=== PATIENT | female | born 1965 | race African-American/Black ===

== ENCOUNTER 2018-11-19 18:53 | Inpatient (IN) | payer MEDICAID ==
[~2018-11-19] VITALS: Ht 167.6 cm; Wt 92.7 kg
[2018-11-19] MEDS ORDERED: METHYLPREDNISOLONE SOD SUCC 125 MG/2 ML VIAL IV STA (21:54)
[2018-11-19] MEDS ORDERED: ALBUTEROL (0.083%) 2.5MG/3ML NEB HHN STA (21:54)
[2018-11-19] MEDS ORDERED: IPRATROPIUM BROMIDE (0.02%) 0.5MG/2.5ML NEB HHN STA (21:54)
[2018-11-19] MEDS ORDERED: ONDANSETRON HCL 4MG/2ML INJ IV STA (21:54)
[2018-11-19 23:09] LABS: BASOPHILS % 0.7 % (0.0-2.0); EOSINOPHILS % 2.6 % (0.0-5.0); HEMOGLOBIN. 13.1 g/dL (12.0-16.0); LYMPHOCYTES % 57.9 % (20.0-50.0); MEAN CORPUSCULAR HEMOGLOBIN 32.2 pg (28.0-32.0); MEAN CORPUSCULAR VOLUME 95.5 fL (81.0-99.0); MEAN PLATELET VOLUME 8.4 fl (7.4-10.4); MONOCYTES % 7.4 % (2.0-8.0); NEUTROPHILS % 31.4 % (40.0-76.0); PLATELET 302 x1000/uL (130-400); RED BLOOD CELL COUNT 4.08 mill/uL (4.2-5.4); RED CELL DISTRIBUTION WIDTH 14.4 % (11.6-14.6)
[2018-11-19 23:15] LABS: CHLORIDE 109 mEq/L (98-107)
[2018-11-20 00:03] LABS: BG BASE EXCESS -1.4 mmol/L (-2.0-2.0); BG CARBOXYHEMOGLOBIN 3.9 % (0.5-1.5); BG DEOXYHEMOGLOBIN 8.3 % (0.0-5.0); BG FRACTION INSPIRED OXYGEN 21; BG HCO3 ACT 23.8 mmol/L (22.0-26.0); BG METHEMOGLOBIN 0.3 % (0.0-1.5); BG OXYGEN SATURATION 91.3 % (92.0-98.5); BG OXYHEMOGLOBIN 87.5 % (94.0-97.0); BG PH 7.372 (7.350-7.450); BG PO2 61.1 mmHg (75.0-100.0); BG SAMPLE SITE RIGHT RADIAL; BG TOTAL HEMOGLOBIN 13.5 g/dL (12.0-18.0); BG VENT MODE ROOM AIR
[2018-11-20] MEDS ORDERED: ALBUTEROL (0.5%) 2.5MG/0.5ML NEB HHN ONE (01:00)
[2018-11-20] MEDS ORDERED: KETOROLAC 30MG/ML VIAL IV ONE (01:00)
[2018-11-20] MEDS ORDERED: ONDANSETRON HCL 4MG/2ML INJ IV PRN (08:15)
[2018-11-20] MEDS ORDERED: DOCUSATE SODIUM 100MG CAPSULE PO PRN (08:15)
[2018-11-20] MEDS ORDERED: IPRATROPIUM/ALBUTEROL 0.5-3(2.5)MG/3ML NEB INH PRN (08:15)
[2018-11-20] MEDS ORDERED: CLONIDINE 0.1MG TABLET PO PRN (08:15)
[2018-11-20] MEDS ORDERED: NITROGLYCERIN 0.4MG TABLET SL SL PRN (08:15)
[2018-11-20] MEDS ORDERED: LORAZEPAM 0.5MG TABLET PO PRN (08:15)
[2018-11-20] MEDS ORDERED: NA PHOS,M-B/NA PHOS,DI-BA ENEMA 118ML PR PRN (08:15)
[2018-11-20] MEDS ORDERED: GUAIFENESIN 200MG/10ML SUGAR FREE UDC PO PRN (08:15)
[2018-11-20] MEDS ORDERED: ACETAMINOPHEN 325MG TABLET PO PRN (08:15)
[2018-11-20] MEDS ORDERED: ZOLPIDEM TARTRATE 5MG TABLET PO PRN (08:15)
[2018-11-20] MEDS ORDERED: KETOROLAC 15MG/ML VIAL IV PRN (08:15)
[2018-11-20] MEDS ORDERED: MAGNESIUM/ALUMINUM HYDROXIDE/SIMETHICONE 30ML UDC PO PRN (08:15)
[2018-11-20] MEDS: METHYLPREDNISOLONE SOD SUCC 125 MG/2 ML VIAL IV SCH ×2 (10:30→18:21)
[2018-11-20] MEDS: IPRATROPIUM/ALBUTEROL 0.5-3(2.5)MG/3ML NEB HHN SCH (14:03)
[2018-11-20 16:00] VITALS: BP 133/83
[2018-11-20 16:51] VITALS: BP 133/83
[2018-11-20] MEDS ORDERED: ENOXAPARIN 40MG/0.4ML SYR SUBCUT SCH (17:00)
[2018-11-20] MEDS ORDERED: LEVOFLOXACIN 500MG PREMIX 100 ML IV SCH (17:30)
[2018-11-20] MEDS: DILTIAZEM HCL 60MG TABLET PO SCH (18:22)
[2018-11-20] MEDS ORDERED: BENZONATATE 100MG CAPSULE PO PRN (19:30)
[2018-11-20] MEDS ORDERED: CEFTRIAXONE 1 G PREMIX 50 ML IV SCH (19:30)
[2018-11-20] MEDS ORDERED: GUAIFENESIN/CODEINE 100-10MG/5ML UDC PO PRN (19:30)
[2018-11-20 20:00] VITALS: BP 143/85
[2018-11-20] MEDS ORDERED: METHYLPREDNISOLONE SOD SUCC 40 MG/ML VIAL IV SCH (20:00)
[2018-11-20] MEDS: AZITHROMYCIN 500 MG TABLET PO SCH (20:31)
[2018-11-20] MEDS: LORATADINE 10MG TABLET PO SCH (20:32)
[2018-11-20] MEDS: GUAIFENESIN/DM 600MG/30MG ER TAB 12HR PO SCH (20:32)
[2018-11-20] MEDS: FAMOTIDINE 20MG TABLET PO SCH (20:32)
[2018-11-20] MEDS ORDERED: CEFTRIAXONE 1,000 MG in DEXTROSE 5% WATER 50 ML IV SCH (21:00)
[2018-11-20] MEDS: FLUTICASONE PROPIONATE 50MCG/SPRAY BOTTLE BOTHNSTRLS SCH (21:00)
[2018-11-21] VITALS: BP 130/79
[2018-11-21] MEDS: DILTIAZEM HCL 60MG TABLET PO SCH ×3 (00:32→11:46)
[2018-11-21] MEDS: IPRATROPIUM/ALBUTEROL 0.5-3(2.5)MG/3ML NEB HHN SCH ×4 (01:08→11:37)
[2018-11-21 01:52] LABS: CLARITY URINE CLEAR (CLEAR); COLOR URINE YELLOW (YELLOW); KETONES URINE NEGATIVE (NEGATIVE); LEUKOCYTE ESTERASE URINE NEGATIVE (NEGATIVE); NITRITE URINE NEGATIVE (NEGATIVE); OCCULT BLOOD URINE NEGATIVE (NEGATIVE); PH URINE 6.5 (4.5-8.0); PROTEIN URINE NEGATIVE (NEGATIVE); SPECIFIC GRAVITY URINE 1.017 (1.005-1.030); UROBILINOGEN URINE 0.2 E.U./dL (0.2-1.0)
[2018-11-21 03:06] LABS: *AMPHETAMINES SCREEN URINE NEGATIVE (NEGATIVE); *BARBITURATES SCREEN URINE NEGATIVE (NEGATIVE); *BENZODIAZEPINES SCREEN URINE NEGATIVE (NEGATIVE); *COCAINE SCREEN URINE NEGATIVE (NEGATIVE); METHADONE URINE SCREEN NEGATIVE (NEGATIVE)
[2018-11-21 03:07] LABS: CANNABINOID URINE SCREEN NEGATIVE (NEGATIVE); OPIATES URINE SCREEN PRESUMTIVE POSITIVE (NEGATIVE); PHENCYCLIDINE URINE SCREEN NEGATIVE (NEGATIVE)
[2018-11-21 04:00] VITALS: BP 135/78
[2018-11-21] MEDS: METHYLPREDNISOLONE SOD SUCC 40 MG/ML VIAL IV SCH ×2 (05:30→13:51)
[2018-11-21 08:00] VITALS: BP 129/79
[2018-11-21] MEDS: AZITHROMYCIN 500 MG TABLET PO SCH (08:37)
[2018-11-21] MEDS: GUAIFENESIN/DM 600MG/30MG ER TAB 12HR PO SCH (08:37)
[2018-11-21] MEDS: LORATADINE 10MG TABLET PO SCH (08:37)
[2018-11-21] MEDS: FAMOTIDINE 20MG TABLET PO SCH (08:37)
[2018-11-21] MEDS: FLUTICASONE PROPIONATE 50MCG/SPRAY BOTTLE BOTHNSTRLS SCH (11:45)
[2018-11-21 12:00] VITALS: BP 111/81
[2018-11-21 13:19] VITALS: BP 111/81
== END 2018-11-21 15:30 | disposition home or self-care (01) | DRG 133 ==
LOC: ER 21:01 → 5WST 11-20 01:02 → EDBEDREQ 11-20 01:05 → EDBEDREQTM 11-20 01:05 → ENRESERV 11-20 14:27
PROVIDERS: ADMIT Internal Medicine; ATTEND Internal Medicine
DX: J96.00 Acute respiratory failure, unspecified whether with hypoxia or hypercapnia (principal); J18.9 Pneumonia, unspecified organism; R65.10 Systemic inflammatory response syndrome (SIRS) of non-infectious origin without acute organ dysfunction; J44.0 Chronic obstructive pulmonary disease with (acute) lower respiratory infection; E78.5 Hyperlipidemia, unspecified; J20.9 Acute bronchitis, unspecified; F17.210 Nicotine dependence, cigarettes, uncomplicated; J44.1 Chronic obstructive pulmonary disease with (acute) exacerbation; Z90.710 Acquired absence of both cervix and uterus; Z71.6 Tobacco abuse counseling
CPT/HCPCS: 36415; 36600; 71045; 80061; 80305; 82375; 82805; 83036; 83880; 84484; 87804; 93005; 93970; 94640; 96374; 96375; 99285; J0696; J1650; J1885; J1956; J2405; J2920; J2930; J7050; J7060; J7611; J7620

== ENCOUNTER 2019-02-15 15:36 | Emergency (ER) | payer MEDICAID ==
[~2019-02-15] VITALS: Ht 162.6 cm; Wt 93.0 kg
[2019-02-15] MEDS ORDERED: ACETAMINOPHEN 325MG TABLET PO STA (19:35)
[2019-02-15 21:52] VITALS: BP 129/81
== END 2019-02-15 21:54 | disposition home or self-care (01) ==
LOC: ER 15:36
DX: S90.32XA Contusion of left foot, initial encounter (principal); M25.561 Pain in right knee; W01.0XXA Fall on same level from slipping, tripping and stumbling without subsequent striking against object, initial encounter; Y93.89 Activity, other specified; Y92.89 Other specified places as the place of occurrence of the external cause
CPT/HCPCS: 73560; 73630; 99283

== ENCOUNTER 2019-03-07 16:55 | Inpatient (IN) | payer MEDICAID ==
[~2019-03-07] VITALS: Ht 167.6 cm; Wt 88.9 kg
[2019-03-07] MEDS ORDERED: IPRATROPIUM BROMIDE (0.02%) 0.5MG/2.5ML NEB HHN STA (17:26)
[2019-03-07] MEDS ORDERED: ALBUTEROL (0.083%) 2.5MG/3ML NEB HHN STA ×2 (17:26→18:47)
[2019-03-07] MEDS ORDERED: METHYLPREDNISOLONE SOD SUCC 125 MG/2 ML VIAL IV STA (17:26)
[2019-03-07] MEDS ORDERED: ALBUTEROL (0.083%) 2.5MG/3ML NEB ONE (17:44)
[2019-03-07] MEDS ORDERED: IPRATROPIUM BROMIDE (0.02%) 0.5MG/2.5ML NEB ONE (17:44)
[2019-03-07] MEDS ORDERED: ALBUTEROL (0.5%) 2.5MG/0.5ML NEB HHN ONE (17:44)
[2019-03-07] MEDS ORDERED: MAGNESIUM 2 G PREMIX 50 ML IV STA (18:47)
[2019-03-07 19:13] LABS: BASOPHILS % 0.3 % (0.0-2.0); EOSINOPHILS % 1.3 % (0.0-5.0); HEMATOCRIT. 37.2 % (36.0-48.0); HEMOGLOBIN. 12.7 g/dL (12.0-16.0); MEAN CORPUSCULAR HEMOGLOBIN 32.7 pg (28.0-32.0); MEAN CORPUSCULAR VOLUME 95.7 fL (81.0-99.0); MEAN PLATELET VOLUME 7.9 fl (7.4-10.4); MONOCYTES % 8.3 % (2.0-8.0); NEUTROPHILS % 49.1 % (40.0-76.0); PLATELET 276 x1000/uL (130-400); RED BLOOD CELL COUNT 3.89 mill/uL (4.2-5.4); RED CELL DISTRIBUTION WIDTH 14.2 % (11.6-14.6)
[2019-03-07 19:15] LABS: CHLORIDE 109 mEq/L (98-107)
[2019-03-07] MEDS ORDERED: ONDANSETRON HCL 4MG/2ML INJ IV PRN (23:15)
[2019-03-07] MEDS ORDERED: IPRATROPIUM/ALBUTEROL 0.5-3(2.5)MG/3ML NEB HHN PRN (23:15)
[2019-03-07] MEDS ORDERED: ACETAMINOPHEN 325MG TABLET PO PRN (23:15)
[2019-03-07] MEDS ORDERED: LEVOFLOXACIN 500MG PREMIX 100 ML IV SCH (23:30)
[2019-03-08] VITALS (7 sets, daily range): BP systolic 91–140; BP diastolic 63–101
[2019-03-08] MEDS: METHYLPREDNISOLONE SOD SUCC 40 MG/ML VIAL IV SCH ×4 (00:12→23:17)
[2019-03-08] MEDS: NICOTINE 21MG PATCH TD SCH ×2 (00:13→09:34)
[2019-03-08] MEDS: ZOLPIDEM TARTRATE 5MG TABLET PO PRN ×2 (00:21→23:17)
[2019-03-08] MEDS: ENOXAPARIN 40MG/0.4ML SYR SUBCUT SCH (02:05)
[2019-03-08] MEDS: IPRATROPIUM/ALBUTEROL 0.5-3(2.5)MG/3ML NEB HHN SCH ×3 (08:00→21:12)
[2019-03-08] MEDS: FLUTICASONE PROPIONATE 50MCG/SPRAY BOTTLE BOTHNSTRLS SCH ×2 (09:35→21:13)
[2019-03-08] MEDS: LACTULOSE 20G/30ML UDC PO SCH ×2 (14:48→22:26)
[2019-03-08] MEDS: GUAIFENESIN 600MG ER TABLET PO SCH (21:13)
[2019-03-09] VITALS: BP 121/83
[2019-03-09 00:06] LABS: *BENZODIAZEPINES SCREEN URINE NEGATIVE (NEGATIVE); *COCAINE SCREEN URINE NEGATIVE (NEGATIVE)
[2019-03-09 00:07] LABS: *AMPHETAMINES SCREEN URINE NEGATIVE (NEGATIVE); *BARBITURATES SCREEN URINE NEGATIVE (NEGATIVE); CANNABINOID URINE SCREEN NEGATIVE (NEGATIVE); METHADONE URINE SCREEN NEGATIVE (NEGATIVE); OPIATES URINE SCREEN NEGATIVE (NEGATIVE); PHENCYCLIDINE URINE SCREEN NEGATIVE (NEGATIVE)
[2019-03-09] MEDS: IPRATROPIUM/ALBUTEROL 0.5-3(2.5)MG/3ML NEB HHN SCH ×3 (00:31→08:02)
[2019-03-09 04:00] VITALS: BP 123/75
[2019-03-09] MEDS: LACTULOSE 20G/30ML UDC PO SCH (06:19)
[2019-03-09] MEDS: METHYLPREDNISOLONE SOD SUCC 40 MG/ML VIAL IV SCH (06:50)
[2019-03-09 08:00] VITALS: BP 161/79
[2019-03-09] MEDS: FLUTICASONE PROPIONATE 50MCG/SPRAY BOTTLE BOTHNSTRLS SCH (08:53)
[2019-03-09] MEDS: ENOXAPARIN 40MG/0.4ML SYR SUBCUT SCH (08:53)
[2019-03-09] MEDS: NICOTINE 21MG PATCH TD SCH (08:54)
[2019-03-09] MEDS: GUAIFENESIN 600MG ER TABLET PO SCH (08:54)
[2019-03-09 11:02] VITALS: BP 116/79
[2019-03-09 12:00] VITALS: BP 130/85
== END 2019-03-09 14:05 | disposition home or self-care (01) | DRG 140 ==
LOC: ER 17:00 → 7WST 19:05 → ENRESERV 20:44
PROVIDERS: ADMIT Internal Medicine; ATTEND Internal Medicine
DX: J44.1 Chronic obstructive pulmonary disease with (acute) exacerbation (principal); E87.8 Other disorders of electrolyte and fluid balance, not elsewhere classified; E66.9 Obesity, unspecified; G90.8 Other disorders of autonomic nervous system; F17.210 Nicotine dependence, cigarettes, uncomplicated; Z90.710 Acquired absence of both cervix and uterus; Z71.6 Tobacco abuse counseling; Z71.3 Dietary counseling and surveillance; Z85.41 Personal history of malignant neoplasm of cervix uteri; Z68.31 Body mass index [BMI] 31.0-31.9, adult
CPT/HCPCS: 36415; 71045; 80305; 83880; 84484; 93005; 94640; 96365; 96367; 96372; 96375; 99285; J1650; J1956; J2920; J2930; J3475; J7050; J7611; J7620

== ENCOUNTER 2019-12-17 19:47 | Emergency (ER) | payer MEDICAID ==
[~2019-12-17] VITALS: Ht 165.1 cm; Wt 85.4 kg
[2019-12-17] MEDS ORDERED: ALBUTEROL (0.083%) 2.5MG/3ML NEB HHN STA (22:00)
[2019-12-17] MEDS ORDERED: IPRATROPIUM BROMIDE (0.02%) 0.5MG/2.5ML NEB HHN STA (22:00)
[2019-12-17 22:34] VITALS: BP 126/81
[2019-12-17 23:14] LABS: BASOPHILS % 0.5 % (0.0-2.0); EOSINOPHILS % 1.9 % (0.0-5.0); HEMATOCRIT. 39.5 % (36.0-48.0); HEMOGLOBIN. 13.4 g/dL (12.0-16.0); LYMPHOCYTES % 58.1 % (20.0-50.0); MEAN CORPUSCULAR HEMOGLOBIN 31.6 pg (28.0-32.0); MEAN CORPUSCULAR VOLUME 92.8 fL (81.0-99.0); MEAN PLATELET VOLUME 8.2 fl (7.4-10.4); MONOCYTES % 8.2 % (2.0-8.0); NEUTROPHILS % 31.3 % (40.0-76.0); PLATELET 284 x1000/uL (130-400); RED BLOOD CELL COUNT 4.26 mill/uL (4.2-5.4); RED CELL DISTRIBUTION WIDTH 14.4 % (11.6-14.6)
[2019-12-17 23:16] LABS: CHLORIDE 108 mEq/L (98-107)
== END 2019-12-18 00:08 | disposition home or self-care (01) ==
LOC: ER 19:47
DX: J44.1 Chronic obstructive pulmonary disease with (acute) exacerbation (principal); Z90.710 Acquired absence of both cervix and uterus; Z87.01 Personal history of pneumonia (recurrent)
CPT/HCPCS: 36415; 71045; 80053; 83880; 84484; 85025; 87804; 93005; 94640; 99285; Z7610

== ENCOUNTER 2020-02-15 13:28 | Emergency (ER) | payer MEDICAID ==
[~2020-02-15] VITALS: Ht 167.6 cm; Wt 86.0 kg
[2020-02-15 15:12] LABS: CHLORIDE 109 mEq/L (98-107)
[2020-02-15 15:26] LABS: BASOPHILS % 0.4 % (0.0-2.0); HEMATOCRIT. 40.6 % (36.0-48.0); HEMOGLOBIN. 13.9 g/dL (12.0-16.0); LYMPHOCYTES % 48.7 % (20.0-50.0); MEAN CORPUSCULAR HEMOGLOBIN 32.4 pg (28.0-32.0); MEAN CORPUSCULAR VOLUME 94.4 fL (81.0-99.0); MEAN PLATELET VOLUME 8.5 fl (7.4-10.4); MONOCYTES % 8.5 % (2.0-8.0); NEUTROPHILS % 40.4 % (40.0-76.0); PLATELET 257 x1000/uL (130-400); RED CELL DISTRIBUTION WIDTH 15.1 % (11.6-14.6)
[2020-02-15 16:16] VITALS: BP 132/78
== END 2020-02-15 16:17 | disposition home or self-care (01) ==
LOC: ER 13:28
DX: J06.9 Acute upper respiratory infection, unspecified (principal); R06.02 Shortness of breath; J44.9 Chronic obstructive pulmonary disease, unspecified; Z87.01 Personal history of pneumonia (recurrent); Z90.710 Acquired absence of both cervix and uterus; Z85.9 Personal history of malignant neoplasm, unspecified
CPT/HCPCS: 36415; 71045; 80053; 83880; 84484; 85025; 93005; 99285; U0003-CS

== ENCOUNTER 2021-01-20 20:53 | Inpatient (IN) | payer MEDICAID ==
[~2021-01-20] VITALS: Ht 167.6 cm; Wt 94.1 kg
[2021-01-20] MEDS ORDERED: VANCOMYCIN 1 G PREMIX 200 ML IV ONE (22:00)
[2021-01-20] MEDS ORDERED: PIPERACILLIN/TAZ 3.375G PREMIX 50 ML IV ONE (22:00)
[2021-01-20] MEDS ORDERED: SODIUM CHLORIDE 0.9% 1,000 ML IV ONE (22:00)
[2021-01-20] MEDS ORDERED: AZITHROMYCIN 500 MG in DEXT 5% WATER 250 ML IV SCH (22:45)
[2021-01-20 22:49] LABS: BASOPHILS % 0.4 % (0.0-2.0); EOSINOPHILS % 1.7 % (0.0-5.0); HEMATOCRIT. 30.4 % (36.0-48.0); HEMOGLOBIN. 10.4 g/dL (12.0-16.0); LYMPHOCYTES % 28.2 % (20.0-50.0); MEAN CORPUSCULAR HEMOGLOBIN 33.7 pg (28.0-32.0); MEAN CORPUSCULAR VOLUME 98.3 fL (81.0-99.0); MEAN PLATELET VOLUME 7.3 fl (7.4-10.4); MONOCYTES % 11.5 % (2.0-8.0); NEUTROPHILS % 58.2 % (40.0-76.0); PLATELET 275 x1000/uL (130-400); RED BLOOD CELL COUNT 3.09 mill/uL (4.2-5.4); RED CELL DISTRIBUTION WIDTH 14.2 % (11.6-14.6)
[2021-01-20 22:52] LABS: CHLORIDE 110 mEq/L (98-107)
[2021-01-21] MEDS ORDERED: MORPHINE SULFATE 4 MG/ML CPJ (NOT FOR IM USE) IV ONE (01:15)
[2021-01-21] MEDS ORDERED: IOHEXOL-350 100 ML BOTTLE ONE (01:37)
[2021-01-21] MEDS ORDERED: ENOXAPARIN 60MG/0.6ML SYR SUBCUT ONE (02:15)
[2021-01-21 07:38] LABS: CLARITY URINE CLEAR (CLEAR); COLOR URINE YELLOW (YELLOW); KETONES URINE NEGATIVE (NEGATIVE); LEUKOCYTE ESTERASE URINE NEGATIVE (NEGATIVE); NITRITE URINE NEGATIVE (NEGATIVE); OCCULT BLOOD URINE NEGATIVE (NEGATIVE); PH URINE 5.5 (4.5-8.0); PROTEIN URINE NEGATIVE (NEGATIVE); SPECIFIC GRAVITY URINE 1.081 (1.005-1.030)
[2021-01-21 09:00] VITALS: BP_SYST 118; BP_SYST 127; BP_DIAS 72
[2021-01-21] MEDS ORDERED: PROM6.254 MT (09:40)
[2021-01-21] MEDS ORDERED: IPRATROPIUM/ALBUTEROL 0.5-3(2.5)MG/3ML NEB HHN PRN (10:15)
[2021-01-21] MEDS ORDERED: ACETAMINOPHEN 325MG TABLET PO PRN (10:15)
[2021-01-21] MEDS ORDERED: ONDANSETRON HCL 4MG/2ML INJ IV PRN (10:15)
[2021-01-21 12:00] VITALS: BP_SYST 126; BP_SYST 131; BP_SYST 135; BP_DIAS 74; BP_DIAS 85; BP_DIAS 87
[2021-01-21] MEDS: NICOTINE 14MG PATCH TD SCH (13:40)
[2021-01-21] MEDS: GABAPENTIN 100MG CAPSULE PO SCH ×2 (15:37→21:01)
[2021-01-21 15:55] VITALS: BP_SYST 111; BP_SYST 114; BP_SYST 120; BP_DIAS 70; BP_DIAS 75; BP_DIAS 76
[2021-01-21 16:00] VITALS: BP 111/70
[2021-01-21 20:00] VITALS: BP 144/94
[2021-01-21] MEDS: ATORVASTATIN CALCIUM 20MG TABLET PO SCH (21:01)
[2021-01-21 21:30] VITALS: BP_SYST 111; BP_SYST 114; BP_SYST 115; BP_DIAS 69; BP_DIAS 71; BP_DIAS 77
[2021-01-21] MEDS: ZOLPIDEM TARTRATE 5MG TABLET PO PRN (23:59)
[2021-01-22 00:01] VITALS: BP 121/75
[2021-01-22] MEDS: BUDESONIDE 0.5MG/2ML NEB HHN SCH ×3 (03:00→20:13)
[2021-01-22] MEDS: IPRATROPIUM/ALBUTEROL 0.5-3(2.5)MG/3ML NEB HHN SCH ×4 (03:00→20:13)
[2021-01-22 04:00] VITALS: BP 104/64
[2021-01-22 06:53] LABS: BASOPHILS % 0.4 % (0.0-2.0); HEMATOCRIT. 31.5 % (36.0-48.0); HEMOGLOBIN. 10.3 g/dL (12.0-16.0); LYMPHOCYTES % 34.7 % (20.0-50.0); MEAN CORPUSCULAR HEMOGLOBIN 32.3 pg (28.0-32.0); MEAN CORPUSCULAR VOLUME 98.5 fL (81.0-99.0); MEAN PLATELET VOLUME 7.8 fl (7.4-10.4); MONOCYTES % 13.8 % (2.0-8.0); NEUTROPHILS % 49.1 % (40.0-76.0); PLATELET 283 x1000/uL (130-400)
[2021-01-22] MEDS: GABAPENTIN 100MG CAPSULE PO SCH ×3 (07:03→21:00)
[2021-01-22 07:12] LABS: CHLORIDE 110 mEq/L (98-107)
[2021-01-22 08:00] VITALS: BP_SYST 139; BP_SYST 140; BP_SYST 141; BP_DIAS 67; BP_DIAS 68; BP_DIAS 72
[2021-01-22] MEDS: ENOXAPARIN 30MG/0.3ML SYR SUBCUT SCH ×2 (09:33→20:49)
[2021-01-22] MEDS: NICOTINE 14MG PATCH TD SCH (09:33)
[2021-01-22] MEDS ORDERED: THROAT LOZENGES-BENZOCAINE/MENTH/CETYLPYRD CL LOZENGES MM PRN (11:30)
[2021-01-22 12:00] VITALS: BP 135/82
[2021-01-22] MEDS: FLUTICASONE PROPIONATE 50MCG/SPRAY BOTTLE BOTHNSTRLS SCH ×2 (13:35→20:48)
[2021-01-22 16:00] VITALS: BP 107/66
[2021-01-22 20:00] VITALS: BP 153/95
[2021-01-22] MEDS: ATORVASTATIN CALCIUM 20MG TABLET PO SCH (20:47)
[2021-01-22] MEDS: ZOLPIDEM TARTRATE 5MG TABLET PO PRN (21:00)
[2021-01-23] VITALS: BP 115/70
[2021-01-23] MEDS: IPRATROPIUM/ALBUTEROL 0.5-3(2.5)MG/3ML NEB HHN SCH ×2 (02:07→07:12)
[2021-01-23 04:00] VITALS: BP 142/90
[2021-01-23] MEDS: GABAPENTIN 100MG CAPSULE PO SCH ×2 (06:00→13:33)
[2021-01-23] MEDS: BUDESONIDE 0.5MG/2ML NEB HHN SCH (07:11)
[2021-01-23] MEDS ORDERED: IODIXANOL 320MG/ML 100 ML BOTTLE IV ONE (07:34)
[2021-01-23] MEDS ORDERED: LIDOCAINE HCL 1% 20ML VIAL (Pyxis) INJ ONE (07:34)
[2021-01-23] MEDS ORDERED: IOHEXOL-300 100 ML BOTTLE ONE (07:34)
[2021-01-23] MEDS ORDERED: FENTANYL CITRATE/PF 50MCG/ML 5ML VIAL ONE ×2 (07:35→14:33)
[2021-01-23] MEDS ORDERED: MIDAZOLAM HCL 5 MG/5 ML VIAL ONE ×2 (07:35→14:33)
[2021-01-23] MEDS ORDERED: HEPARIN SODIUM 1,000 UNIT/1ML VIAL IV ONE (07:45)
[2021-01-23] MEDS ORDERED: MIDAZOLAM HCL 2 MG/2 ML VIAL ONE (08:19)
[2021-01-23] MEDS ORDERED: FENTANYL CITRATE/PF 50MCG/ML 2ML VIAL ONE (08:20)
[2021-01-23] MEDS: NICOTINE 14MG PATCH TD SCH (09:53)
[2021-01-23] MEDS: ENOXAPARIN 30MG/0.3ML SYR SUBCUT SCH (09:53)
[2021-01-23] MEDS: FLUTICASONE PROPIONATE 50MCG/SPRAY BOTTLE BOTHNSTRLS SCH (09:54)
[2021-01-23 12:00] VITALS: BP 106/62
[2021-01-23] MEDS ORDERED: HYDROCODONE/ACETAMINOPHEN 5/325MG TABLET PO PRN (12:45)
[2021-01-23] MEDS ORDERED: CLOP-31 MT (15:51)
[2021-01-23] MEDS ORDERED: ACET-2708 MT (15:51)
[2021-01-23] MEDS ORDERED: ASPI-1406 MT (15:51)
[2021-01-23] MEDS ORDERED: ATOR20TA PO (15:51)
[2021-01-23 16:00] VITALS: BP 132/81
[2021-01-23 17:29] VITALS: BP 132/81
== END 2021-01-23 18:10 | disposition home or self-care (01) | DRG 182 ==
LOC: ER 20:53 → 7WST 01-21 02:13 → ENRESERV 01-21 07:41 → 5WST 01-21 16:34
PROVIDERS: ADMIT Internal Medicine; ATTEND Internal Medicine
PROC: B5131ZZ Fluoroscopy of Right Jugular Veins using Low Osmolar Contrast (ICD-10-PCS; principal; 2021-01-23)
PROC: 027V3ZZ Dilation of Superior Vena Cava, Percutaneous Approach (ICD-10-PCS; 2021-01-23)
PROC: B543ZZA Ultrasonography of Right Jugular Veins, Guidance (ICD-10-PCS; 2021-01-23)
PROC: 05733ZZ Dilation of Right Innominate Vein, Percutaneous Approach (ICD-10-PCS; 2021-01-23)
PROC: 057M3ZZ Dilation of Right Internal Jugular Vein, Percutaneous Approach (ICD-10-PCS; 2021-01-23)
DX: I82.210 Acute embolism and thrombosis of superior vena cava (principal); J96.00 Acute respiratory failure, unspecified whether with hypoxia or hypercapnia; E87.8 Other disorders of electrolyte and fluid balance, not elsewhere classified; C34.90 Malignant neoplasm of unspecified part of unspecified bronchus or lung; G62.9 Polyneuropathy, unspecified; D64.9 Anemia, unspecified; J43.9 Emphysema, unspecified; I82.290 Acute embolism and thrombosis of other thoracic veins; I82.C11 Acute embolism and thrombosis of right internal jugular vein; G90.8 Other disorders of autonomic nervous system; R07.89 Other chest pain; C53.9 Malignant neoplasm of cervix uteri, unspecified; E66.9 Obesity, unspecified; E78.5 Hyperlipidemia, unspecified; F17.210 Nicotine dependence, cigarettes, uncomplicated; R22.1 Localized swelling, mass and lump, neck; I10 Essential (primary) hypertension; Z20.822 Contact with and (suspected) exposure to COVID-19; K21.9 Gastro-esophageal reflux disease without esophagitis; Z85.118 Personal history of other malignant neoplasm of bronchus and lung; Z85.41 Personal history of malignant neoplasm of cervix uteri; Z90.710 Acquired absence of both cervix and uterus; Z92.21 Personal history of antineoplastic chemotherapy; Z92.3 Personal history of irradiation; Z87.01 Personal history of pneumonia (recurrent); Z68.33 Body mass index [BMI] 33.0-33.9, adult; Z71.6 Tobacco abuse counseling
CPT/HCPCS: 36415; 37248; 70490; 71045; 71275; 75827; 80048; 80053; 81003; 83605; 83880; 84443; 84484; 85025; 85347; 87070; 87426; 87430; 93005; 93306; 93880; 94640; 99285; C1725; C1769; C1893; J0456; J1644; J1650; J2250; J2270; J2543; J3010; J3370; J3490; J7030; J7060; J7626; Q9967

== ENCOUNTER 2021-12-07 10:49 | Inpatient (IN) | payer MEDICAID ==
[~2021-12-07] VITALS: Ht 165.1 cm; Wt 96.8 kg
[~2021-12-07 10:49] MED LIST: ACET-2708 MT; ASPI-1406 MT; ATOR20TA PO; CLOP-31 MT; PROM6.254 MT
[2021-12-07] MEDS ORDERED: IPRATROPIUM BROMIDE (0.02%) 0.5MG/2.5ML NEB HHN STA (11:17)
[2021-12-07] MEDS ORDERED: METHYLPREDNISOLONE SOD SUCC 125 MG/2 ML VIAL IV STA (11:17)
[2021-12-07 11:41] LABS: BASOPHILS % 0.4 % (0.0-2.0); EOSINOPHILS % 1.9 % (0.0-5.0); HEMATOCRIT. 38.6 % (36.0-48.0); HEMOGLOBIN. 13.2 g/dL (12.0-16.0); LYMPHOCYTES % 34.6 % (20.0-50.0); MEAN CORPUSCULAR HEMOGLOBIN 32.8 pg (28.0-32.0); MEAN CORPUSCULAR VOLUME 95.9 fL (81.0-99.0); MEAN PLATELET VOLUME 7.6 fl (7.4-10.4); MONOCYTES % 10.3 % (2.0-8.0); NEUTROPHILS % 52.8 % (40.0-76.0); PLATELET 300 x1000/uL (130-400); RED BLOOD CELL COUNT 4.02 mill/uL (4.2-5.4); RED CELL DISTRIBUTION WIDTH 16.2 % (11.6-14.6)
[2021-12-07 11:46] LABS: CHLORIDE 108 mEq/L (98-107)
[2021-12-07] MEDS: ALBUTEROL (0.083%) 2.5MG/3ML NEB HHN SCH ×3 (12:21→13:28)
[2021-12-07] MEDS ORDERED: SODIUM CHLORIDE 0.9% 1,000 ML IV ONE (13:00)
[2021-12-07] MEDS ORDERED: TRAMADOL 50MG TABLET PO PRN (14:00)
[2021-12-07] MEDS: IPRATROPIUM/ALBUTEROL 0.5-3(2.5)MG/3ML NEB HHN SCH (17:52)
[2021-12-07] MEDS ORDERED: BENZONATATE 100MG CAPSULE PO ONE (18:00)
[2021-12-07] MEDS ORDERED: GUAIFENESIN 200MG/10ML SUGAR FREE UDC PO PRN (21:00)
[2021-12-07] MEDS ORDERED: NALOXONE HCL 0.4MG/ML VIAL IV PRN (21:00)
[2021-12-07] MEDS: HYDROCODONE/ACETAMINOPHEN 10/325MG TABLET PO PRN (22:00)
[2021-12-07 22:39] VITALS: BP 117/60
[2021-12-07 23:00] VITALS: BP 117/60
[2021-12-07] MEDS: ZOLPIDEM TARTRATE 5MG TABLET PO PRN (23:23)
[2021-12-07] MEDS ORDERED: GUAIFENESIN-DM 200MG-20MG/10ML UDC PO PRN (23:45)
[2021-12-07] MEDS ORDERED: INFLUENZA VACCINE 05/PF 0.5 ML SYRINGE IM ONE (23:45)
[2021-12-08] MEDS ORDERED: INFLUENZA VACCINE 05/PF 0.5 ML SYRINGE IM ONE (01:00)
[2021-12-08 04:00] VITALS: BP 122/74
[2021-12-08] MEDS ORDERED: ALBU6.7H9 INH (04:59)
[2021-12-08] MEDS: IPRATROPIUM/ALBUTEROL 0.5-3(2.5)MG/3ML NEB HHN SCH ×4 (07:57→21:07)
[2021-12-08 08:00] VITALS: BP 138/86
[2021-12-08] MEDS: DOCUSATE SODIUM 250MG CAPSULE PO SCH ×2 (08:32→17:48)
[2021-12-08] MEDS: HYDROCODONE/ACETAMINOPHEN 10/325MG TABLET PO PRN ×2 (08:32→21:49)
[2021-12-08 12:00] VITALS: BP 125/76
[2021-12-08 16:00] VITALS: BP 109/77
[2021-12-08] MEDS ORDERED: RIVAROXABAN 20 MG TABLET PO SCH (17:00)
[2021-12-08 20:00] VITALS: BP 116/78
[2021-12-08] MEDS: ZOLPIDEM TARTRATE 5MG TABLET PO PRN (23:05)
[2021-12-09] VITALS: BP 98/55
[2021-12-09] MEDS: IPRATROPIUM/ALBUTEROL 0.5-3(2.5)MG/3ML NEB HHN SCH ×3 (00:31→09:00)
[2021-12-09 04:00] VITALS: BP 121/61
[2021-12-09 08:00] VITALS: BP 125/79
[2021-12-09] MEDS ORDERED: IOHEXOL-350 100 ML BOTTLE ONE (09:45)
[2021-12-09 10:38] VITALS: BP 125/79
== END 2021-12-09 13:00 | disposition home or self-care (01) | DRG 203 ==
LOC: ER 10:49 → 5WST 12:24 → EDBEDREQTM 12:27 → EDBEDREQ 12:27 → ENRESERV 20:58 → CANBEDREQ 12-08 18:57
PROVIDERS: ADMIT Internal Medicine; ATTEND Internal Medicine
DX: M94.0 Chondrocostal junction syndrome [Tietze] (principal); C34.90 Malignant neoplasm of unspecified part of unspecified bronchus or lung; E88.09 Other disorders of plasma-protein metabolism, not elsewhere classified; E66.9 Obesity, unspecified; I10 Essential (primary) hypertension; J44.9 Chronic obstructive pulmonary disease, unspecified; Z20.822 Contact with and (suspected) exposure to COVID-19; F17.210 Nicotine dependence, cigarettes, uncomplicated; Z86.718 Personal history of other venous thrombosis and embolism; Z90.710 Acquired absence of both cervix and uterus; Z91.19 Patient's noncompliance with other medical treatment and regimen; Z68.35 Body mass index [BMI] 35.0-35.9, adult; Z71.3 Dietary counseling and surveillance; Z71.6 Tobacco abuse counseling; Z86.711 Personal history of pulmonary embolism; Z79.1 Long term (current) use of non-steroidal anti-inflammatories (NSAID); Z79.899 Other long term (current) drug therapy; Z87.01 Personal history of pneumonia (recurrent)
CPT/HCPCS: 36415; 71045; 71275; 80053; 83605; 83880; 84484; 85025; 85379; 87426; 90686; 93005; 93306; 94640; 99285; J2930; Q9967

== ENCOUNTER 2022-05-27 20:31 | Inpatient (IN) | payer MEDICAID ==
[~2022-05-27] VITALS: Ht 165.1 cm; Wt 99.8 kg
[~2022-05-27 20:31] MED LIST changes: +ALBU6.7H9 INH
[2022-05-27] MEDS ORDERED: OMEP20CA14 PO (21:14)
[2022-05-27] MEDS ORDERED: DULO30CA52 PO (21:15)
[2022-05-27] MEDS ORDERED: FLUT1BLS10 IH (21:16)
[2022-05-27] MEDS ORDERED: IOHEXOL-350 100 ML BOTTLE ONE (21:23)
[2022-05-27 21:50] LABS: BASOPHILS % 0.6 % (0.0-2.0); HEMOGLOBIN. 11.2 g/dL (12.0-16.0); LYMPHOCYTES % 36.9 % (20.0-50.0); MEAN CORPUSCULAR HEMOGLOBIN 32.9 pg (28.0-32.0); MEAN CORPUSCULAR VOLUME 99.5 fL (81.0-99.0); MEAN PLATELET VOLUME 7.8 fl (7.4-10.4); MONOCYTES % 7.5 % (2.0-8.0); PLATELET 246 x1000/uL (130-400); RED BLOOD CELL COUNT 3.41 mill/uL (4.2-5.4); RED CELL DISTRIBUTION WIDTH 15.1 % (11.6-14.6)
[2022-05-27 21:57] LABS: PROTHROMBIN TIME 11.1 sec (9.6-11.0)
[2022-05-27 21:58] LABS: CHLORIDE 110 mEq/L (98-107)
[2022-05-27 22:05] LABS: ETHANOL BLOOD < 10 mg/dL
[2022-05-27] MEDS ORDERED: SODIUM CHLORIDE 0.9% 1,000 ML IV ONE (22:30)
[2022-05-27] MEDS ORDERED: ASPIRIN 325MG EC TABLET PO NR (22:30)
[2022-05-27] MEDS ORDERED: ACETAMINOPHEN 325MG TABLET PO PRN (23:45)
[2022-05-27] MEDS ORDERED: DOCUSATE SODIUM 100MG CAPSULE PO PRN (23:45)
[2022-05-27] MEDS ORDERED: MAGNESIUM/ALUMINUM HYDROXIDE/SIMETHICONE 30ML UDC PO PRN (23:45)
[2022-05-27] MEDS ORDERED: ONDANSETRON HCL 4MG/2ML INJ IV PRN (23:45)
[2022-05-27] MEDS ORDERED: CLONIDINE 0.1MG TABLET PO PRN (23:45)
[2022-05-27] MEDS ORDERED: TRAMADOL 50MG TABLET PO PRN (23:45)
[2022-05-27] MEDS ORDERED: GUAIFENESIN 200MG/10ML SUGAR FREE UDC PO PRN (23:45)
[2022-05-28] MEDS: CLOPIDOGREL 75MG TABLET PO SCH ×2 (00:45→09:57)
[2022-05-28 01:36] VITALS: BP 121/82
[2022-05-28 07:26] LABS: BASOPHILS % 0.5 % (0.0-2.0); CHLORIDE 108 mEq/L (98-107); EOSINOPHILS % 2.3 % (0.0-5.0); HEMATOCRIT. 37.2 % (36.0-48.0); HEMOGLOBIN. 12.1 g/dL (12.0-16.0); LYMPHOCYTES % 39.4 % (20.0-50.0); MEAN CORPUSCULAR HEMOGLOBIN 32.9 pg (28.0-32.0); MEAN CORPUSCULAR VOLUME 100.9 fL (81.0-99.0); MEAN PLATELET VOLUME 8.3 fl (7.4-10.4); MONOCYTES % 8.7 % (2.0-8.0); NEUTROPHILS % 49.1 % (40.0-76.0); PLATELET 254 x1000/uL (130-400); RED BLOOD CELL COUNT 3.69 mill/uL (4.2-5.4); RED CELL DISTRIBUTION WIDTH 15.3 % (11.6-14.6)
[2022-05-28 07:37] LABS: HDL CHOLESTEROL 40 mg/dL (40-59); LDL CHOLESTEROL 142 mg/dL (5-100)
[2022-05-28 08:00] VITALS: BP 111/74
[2022-05-28] MEDS ORDERED: ASPIRIN 81MG EC TABLET PO SCH (09:00)
[2022-05-28] MEDS ORDERED: ENOXAPARIN 30MG/0.3ML SYR SUBCUT SCH (09:00)
[2022-05-28] MEDS ORDERED: DULOXETINE HCL 30MG DR CAPSULE PO SCH (09:00)
[2022-05-28] MEDS ORDERED: AMLODIPINE 10MG TABLET PO SCH (09:00)
[2022-05-28 10:42] VITALS: BP 111/74
[2022-05-28] MEDS ORDERED: RIVAROXABAN 10 MG TABLET PO SCH (17:00)
[2022-05-28] MEDS ORDERED: ATORVASTATIN CALCIUM 20MG TABLET PO SCH (21:00)
== END 2022-05-28 10:55 | disposition home or self-care (01) | DRG 197 ==
LOC: ER 20:31 → MICUSO 22:18 → ENRESERV 23:41 → 7WST 05-28 01:15
PROVIDERS: ADMIT Hospitalist; ATTEND Hospitalist
DX: I82.210 Acute embolism and thrombosis of superior vena cava (principal); C34.90 Malignant neoplasm of unspecified part of unspecified bronchus or lung; D64.9 Anemia, unspecified; E66.9 Obesity, unspecified; E78.5 Hyperlipidemia, unspecified; R07.9 Chest pain, unspecified; J44.9 Chronic obstructive pulmonary disease, unspecified; I77.9 Disorder of arteries and arterioles, unspecified; F17.200 Nicotine dependence, unspecified, uncomplicated; Z91.14 Patient's other noncompliance with medication regimen; Z87.01 Personal history of pneumonia (recurrent); Z90.710 Acquired absence of both cervix and uterus; Z82.49 Family history of ischemic heart disease and other diseases of the circulatory system; Z79.01 Long term (current) use of anticoagulants; Z85.41 Personal history of malignant neoplasm of cervix uteri; Z86.718 Personal history of other venous thrombosis and embolism
CPT/HCPCS: 36415; 70496; 70498; 71045; 80053; 80061; 80320; 85025; 93005; 99291; J1650; Q9967; G0480

== ENCOUNTER 2022-10-24 10:02 | Emergency (ER) | payer MEDICARE, MEDICAID ==
[~2022-10-24] VITALS: Ht 165.1 cm; Wt 93.0 kg
[~2022-10-24 10:02] MED LIST changes: +ALBU6.7H3 INH; -ALBU6.7H9 INH; +DULO30CA52 PO; +FLUT1BLS10 IH; +OMEP20CA14 PO
[2022-10-24 12:07] LABS: BASOPHILS % 0.5 % (0.0-2.0); EOSINOPHILS % 1.8 % (0.0-5.0); HEMATOCRIT. 35.5 % (36.0-48.0); HEMOGLOBIN. 11.8 g/dL (12.0-16.0); LYMPHOCYTES % 28.7 % (20.0-50.0); MEAN CORPUSCULAR HEMOGLOBIN 32.2 pg (28.0-32.0); MEAN CORPUSCULAR VOLUME 97.2 fL (81.0-99.0); MEAN PLATELET VOLUME 7.6 fl (7.4-10.4); MONOCYTES % 7.5 % (2.0-8.0); NEUTROPHILS % 61.5 % (40.0-76.0); PLATELET 288 x1000/uL (130-400); RED BLOOD CELL COUNT 3.66 mill/uL (4.2-5.4); RED CELL DISTRIBUTION WIDTH 15.4 % (11.6-14.6)
[2022-10-24 12:13] LABS: CHLORIDE 108 mEq/L (98-107)
[2022-10-24 12:22] LABS: INR 1.1; PROTHROMBIN TIME 11.4 sec (9.6-11.0)
[2022-10-24] MEDS ORDERED: ACETAMINOPHEN 325MG TABLET PO ONE (12:30)
[2022-10-24] MEDS ORDERED: IOHEXOL-300 100 ML BOTTLE ONE (15:15)
[2022-10-24] MEDS ORDERED: AMPICILLIN SOD/SULBACTAM NA 3 G in SODIUM CHLORIDE 0.9% 100 ML IV SCH (15:30)
[2022-10-24 15:35] LABS: CLARITY URINE CLOUDY (CLEAR); COLOR URINE YELLOW (YELLOW); KETONES URINE NEGATIVE (NEGATIVE); LEUKOCYTE ESTERASE URINE 2+ (NEGATIVE); NITRITE URINE NEGATIVE (NEGATIVE); OCCULT BLOOD URINE NEGATIVE (NEGATIVE); PH URINE 5.5 (4.5-8.0); PROTEIN URINE NEGATIVE (NEGATIVE); SPECIFIC GRAVITY URINE 1.024 (1.005-1.030)
[2022-10-24] MEDS ORDERED: AMOX1TAB16 MT (17:15)
[2022-10-24 17:30] VITALS: BP 107/68
== END 2022-10-24 17:40 | disposition home or self-care (01) ==
LOC: ER 10:02
DX: L03.211 Cellulitis of face (principal); J44.9 Chronic obstructive pulmonary disease, unspecified; Z87.01 Personal history of pneumonia (recurrent); Z90.710 Acquired absence of both cervix and uterus; Z79.899 Other long term (current) drug therapy
CPT/HCPCS: 36415; 70487; 80053; 81003; 83605; 83880; 84145; 85025; 85610; 87040; 87086; 96365; 99285; J0295; J7050; Q9967

== ENCOUNTER 2025-04-13 23:26 | Emergency (ER) | payer MEDICARE, MEDICAID ==
[~2025-04-13] VITALS: Ht 167.6 cm; Wt 100.0 kg
[~2025-04-13 23:26] MED LIST changes: -ASPI-1406 MT; +ASPI-1406 PO; -ATOR20TA PO; -CLOP-31 MT; +CLOP-31 PO; +LIP40 PO; -OMEP20CA14 PO; +POLY17PO43 MT; -PROM6.254 MT; +RIVA10TA PO
[2025-04-14 01:11] VITALS: TEMP 37; O2SAT 98
[2025-04-14] MEDS: KETOROLAC 15MG/ML VIAL IM ONE (02:58)
[2025-04-14] MEDS ORDERED: NAPR-1176 MT (04:25)
[2025-04-14] MEDS ORDERED: LIDO-53 TP (04:25)
[2025-04-14 05:26] VITALS: BP 137/87; PULSE 98; RESP 18; O2SAT 100
== END 2025-04-14 05:26 | disposition home or self-care (01) ==
LOC: ER 23:26
DX: M25.561 Pain in right knee (principal); J44.9 Chronic obstructive pulmonary disease, unspecified; M17.11 Unilateral primary osteoarthritis, right knee; Z79.02 Long term (current) use of antithrombotics/antiplatelets; Z79.1 Long term (current) use of non-steroidal anti-inflammatories (NSAID); Z79.51 Long term (current) use of inhaled steroids; Z79.82 Long term (current) use of aspirin; Z79.899 Other long term (current) drug therapy; Z90.710 Acquired absence of both cervix and uterus
CPT/HCPCS: 99283; 29505; 73562; 96372; J1885